=== PATIENT | female | born 1985 | race Caucasian/White ===

== ENCOUNTER → 2024-08-13 | Day surgery (SDC) | payer MEDICAID ==
[~2024-08-13] VITALS: Ht 157.5 cm; Wt 67.1 kg
[~2024-08-13] MED LIST: BUPIVACAINE HCL/PF 0.5% (5MG/ML) 10ML ONE; CEFAZOLIN SODIUM 1000MG/VIAL ONE; EPHEDRINE SULFATE 50MG/ML VIAL ONE; FAMOTIDINE 20MG/2ML VIAL IV ONE; FENTANYL CITRATE/PF 50MCG/ML 2ML VIAL ONE; GLYCOPYRROLATE 0.2 MG/ML 2ML VIAL ONE; HYDROCODONE/ACETAMINOPHEN 5/325MG TABLET PO PRN; HYDROMORPHONE HCL/PF 1MG/ML INJ ONE; LIDOCAINE HCL 1% 10 MG/ML 10ML VIAL ONE; METOCLOPRAMIDE HCL 10MG/2ML VIAL ONE; MIDAZOLAM HCL 2 MG/2 ML VIAL ONE; NALOXONE HCL 0.4MG/ML VIAL IV PRN; NEOSTIGMINE METHYLSULFATE 1MG/ML 10 ML VIAL ONE; ONDANSETRON HCL 4MG/2ML INJ IV PRN; ONDANSETRON HCL 4MG/2ML INJ ONE; PHENYLEPHRINE HCL 10MG/ML 1ML IV ONE; POLYMYXIN B SULFATE 500000 UNITS/VIAL ONE; PROPOFOL 200MG/20ML VIAL IV ONE; RESM80TA PO; ROCURONIUM BROMIDE 10MG/ML VIAL 5ML IV ONE; UBRO100T PO
[2024-08-13 06:21] LABS: UCG KIT EXPIRATION DATE 11/27/2026; UCG KIT LOT# 946166; UCG SCREEN NEGATIVE
[2024-08-13] MEDS: LACTATED RINGERS 1,000 ML IV SCH (06:50)
[2024-08-13 08:20] LABS: PROTHROMBIN TIME 10.7 sec (9.6-11.0)
[2024-08-13] MEDS: HYDROMORPHONE HCL/PF 1MG/ML INJ IV PRN (09:46)
[2024-08-13 10:45] VITALS: BP 112/67; PULSE 88; RESP 14
[2024-08-13] MEDS: KETOROLAC 30MG/ML VIAL IV SCH (10:45)
== END | disposition home or self-care (01) ==
LOC: OR 05:42
PROVIDERS: ATTEND Specialist
DX: K80.10 Calculus of gallbladder with chronic cholecystitis without obstruction (principal); K75.81 Nonalcoholic steatohepatitis (NASH); G43.909 Migraine, unspecified, not intractable, without status migrainosus; Z79.899 Other long term (current) drug therapy; Z98.890 Other specified postprocedural states
CPT/HCPCS: 47562; 81025; 85610; 85730; 36415; 88304; J1885; J3010; J0665; J0690; J3490 ×4; J1308; J2003; J2765; J2250; J2405; J2371; J2704; J1171; J2710